=== PATIENT | female | born 1990 | race African-American/Black ===

== ENCOUNTER 2018-10-23 22:03 | Emergency (ER) | payer SELFPAY ==
[2018-10-23] MEDS ORDERED: methylPREDNISolone Sod Succ/PF 125 MG/2 ML VIAL ONE (22:54)
[2018-10-23] MEDS ORDERED: Famotidine 20 MG TAB ONE (22:54)
[2018-10-23] MEDS ORDERED: Water For Inject, Bacteriostat 30 ML ONE (22:54)
== END 2018-10-24 00:15 | disposition home or self-care (01) ==
LOC: ERS 22:03
DX: L50.9 Urticaria, unspecified (principal); D64.9 Anemia, unspecified; F31.9 Bipolar disorder, unspecified; F17.210 Nicotine dependence, cigarettes, uncomplicated
CPT/HCPCS: 96372; J2930

== ENCOUNTER 2019-02-16 17:28 | Emergency (ER) | payer SELFPAY | END 2019-02-16 21:07 | disposition home or self-care (01) | LOC: ERS 17:28 | DX: R42 Dizziness and giddiness (principal); D64.9 Anemia, unspecified; F31.9 Bipolar disorder, unspecified; F17.210 Nicotine dependence, cigarettes, uncomplicated | CPT/HCPCS: 93005 ==

== ENCOUNTER 2019-05-29 13:48 | Emergency (ER) | payer BC, SELFPAY ==
[2019-05-29 14:48] LABS: #Basophils 0.1 thou/uL (0.0-0.2); #Eosinphils 0.1 thou/uL (0.0-0.7); #Lymphocytes 1.8 thou/uL (1.20-3.40); #Monocytes 0.3 thou/uL (0.11-0.59); #Neutrophils 3.4 thou/uL (1.40-6.50); %Basophils 1.1 % (0.0-1.0); %Lymphocytes 32.8 % (21.0-51.0); %Monocytes 5.2 % (0.0-10.0); Hemoglobin 5.7 g/dL (12.0-16.0); Mean Corpuscular HGB CONC 27.8 g/dL (32.0-36.0); Mean Corpuscular Hemoglobin 19.8 pg (27.0-31.0); Mean Corpuscular Volume 71.2 fL (78.0-98.0); Mean Platelet Volume 9.2 fL (7.4-10.4); Platelet Count 261 thou/uL (130-400); RBC Distribution Width 22.2 % (11.5-14.5); Red Blood Cell (RBC) Count 2.86 mill/uL (4.20-5.40); White Blood Cell (WBC) Count 5.6 thou/uL (4.8-10.8)
[2019-05-29 14:59] LABS: ALT (SGPT) Less than 7 U/L (8-55); AST (SGOT) 12 U/L (5-34); Alkaline Phosphatase 41 U/L (40-150); Anion Gap 12 mmol/L (10-20); BUN (Urea Nitrogen) 10 mg/dL (7.0-18.7); Bilirubin, Total 0.3 mg/dL (0.2-1.2); Calc. Creatinine Clearance 0 mL/min (70-130); Calcium 9.1 mg/dL (7.8-10.44); Carbon Dioxide 22 mmol/L (22-29); Chloride 111 mmol/L (98-107); Estimated GFR-MDRD Greater than 90; Globulin 2.5 g/dL (2.4-3.5); Glucose 93 mg/dL (70-105); Protein, Total 6.5 g/dL (6.0-8.3); Sodium 141 mmol/L (136-145)
[2019-05-29 15:14] LABS: Anisocytosis SLIGHT = 6-15 cells (100X) (0-5/hpf); Elliptocytes SLIGHT = 2-5 cells (100X) (0-1/hpf); Hypochromia MODERATE=16-30 cells (100X) (0-5/hpf); MDiff Complete? YES; Microcytosis SLIGHT = 6-15 cells (100X) (0-5/hpf); Ovalocytes SLIGHT = 2-5 cells (100X) (0-1/hpf); Platelet Morphology Comment Appears Adequate; Polychromasia SLIGHT = 2-3 cells (100X) (0-2/hpf); Reflex for Review?? YES; Target Cells SLIGHT = 2-5 cells (100X) (0-1/hpf); Tear Drops SLIGHT = 2-5 cells (100X) (0-1/hpf)
[2019-05-29 15:41] LABS: BHCG - Serum Negative (NEGATIVE); Pregs Control Background? CLEAR/WHITE (CLR/WHITE); Pregs Control Bar Appear? YES (CONTROL BAR)
[2019-05-29 16:41] LABS: PTT 28.2 SEC (22.9-36.1); Prothrombin Time 13.5 SEC (12.0-14.7)
--- NOTE | 2019-05-29 17:01 | CON ---
DATE OF CONSULTATION: 05/29/2019 REQUESTING PHYSICIAN: Dr. Yeung in the ER. LOCATION: ER, bed 6. REASON FOR CONSULTATION: Compensated chronic anemia due to heavy menstrual bleeding. HISTORY OF PRESENT ILLNESS: This is a 28-year-old, G0, who has had a chronic/long-term history of heavy menstrual bleeding, not yet evaluated. She was initially seen at the [facility], and was sent here for gynecological evaluation/workup. She denies shortness of breath or chest pain. She denies dizziness or loss of consciousness, fatigue. She states heavy menstrual bleeding, but has not sought evaluation as of yet. She is not on any medication. REVIEW OF SYSTEMS: Negative for shortness of breath, dyspnea, chest pain, or syncope. Complete review of systems was done and is otherwise negative as per HPI. PAST MEDICAL HISTORY: Negative. PAST SURGICAL HISTORY: Significant only for appendectomy. SOCIAL HISTORY: Positive for tobacco. PHYSICAL EXAMINATION: VITAL SIGNS: Showed non-tachycardia with a pulse of 89 and blood pressure is normal. GENERAL: Clinically, she is in no acute distress and appears well compensated. There is no evidence of active vaginal bleeding at this time. LABORATORY DATA: Hemoglobin is 5.7 and hematocrit value is 20. Interventions ordered. I have ordered a PT/PTT/von Willebrand factor assays, ultrasound. ASSESSMENT: This is a 28-year-old, G0, with a long/chronic history of heavy menstrual bleeding, not yet evaluated. She is compensated with no evidence of symptomatology. I have discussed the case with the ER physician. I went down to the bedside, where the patient was taken down for ultrasound evaluation. This history is done in union/partnership with the ER physician. PLAN: 1. I have discussed giving the patient 1 to 2 units prophylactically. Even though she is hemodynamically stable, as she is a smoker, hemoglobin of 5.7, does not allow for any reserve if heavy menstrual bleeding continues. ER physician will order packed red blood cells. 2. To follow up on the PT/PTT, ultrasound, and possible endometrial biopsy (which needs to be performed). I have recommended that the patient seek followup at [facility], [facility], [facility] [place], or any other gynecological office. 3. No need for estrogen therapy at this time as she is not actively bleeding currently. 4. After her packed red blood cell transfusion, we can follow this up as an outpatient as she is hemodynamically stable without evidence of acute bleed at this time. Job ID: [id number]
--- NOTE | 2019-05-29 17:01 | ULT ---
Pelvic ultrasound: 05/29/2019 COMPARISON: None HISTORY: Heavy menstrual bleeding TECHNIQUE: Multiplanar grayscale sonographic imaging of the pelvis obtained with transabdominal and e ndovaginal imaging. The ovaries are assessed with color flow and spectral analysis FINDINGS: The uterus measures 5.7 x 3.9 x 3.5 cm. No uterine mass identified. The endometrial thickne ss is approximately 7 mm. There is heterogeneity of the endometrial contents, which may signify complex fluid within the endometrial canal. The right ovary measures 4.4 x 2.4 x 4.3 cm and the left ovary measures 4.2 x 2.9 x 3.8 cm. Ovaries d emonstrate normal blood flow. There are numerous peripheral follicles associated with both ovaries. This appearance can be seen on the basis of polycystic ovarian syndrome. Clinical correlation is requ ired. There is small volume free fluid in the pelvic cul-de-sac. IMPRESSION: Appearance of the ovaries suggest possible PCOS. Probable small volume complex fluid with in the endometrial canal. Ovaries demonstrate normal blood flow.
== END 2019-05-29 20:48 | disposition home or self-care (01) ==
LOC: ERS 13:48
DX: N92.0 Excessive and frequent menstruation with regular cycle (principal); D64.9 Anemia, unspecified; F17.210 Nicotine dependence, cigarettes, uncomplicated
CPT/HCPCS: 36415; 36430; 76856; 80053; 84703; 85025; 85060; 85245; 85246; 85610; 85730; 86850; 86900; 86901; P9016

== ENCOUNTER 2019-10-03 17:45 | Observation (INO) | payer BC, SELFPAY ==
[2019-10-03 18:20] LABS: Hemoglobin 5.5 g/dL (12.0-16.0); Mean Corpuscular HGB CONC 28.9 g/dL (32.0-36.0); Mean Corpuscular Hemoglobin 18.8 pg (27.0-31.0); Mean Corpuscular Volume 65.2 fL (78.0-98.0); Mean Platelet Volume 6.7 fL (7.4-10.4); Platelet Count 359 thou/uL (130-400); RBC Distribution Width 33.4 % (11.5-14.5); Red Blood Cell (RBC) Count 2.93 mill/uL (4.20-5.40); White Blood Cell (WBC) Count 6.8 thou/uL (4.8-10.8)
[2019-10-03 18:21] LABS: #Basophils 0.1 thou/uL (0.0-0.2); #Lymphocytes 1.6 thou/uL (1.20-3.40); #Monocytes 0.6 thou/uL (0.11-0.59); #Neutrophils 4.6 thou/uL (1.40-6.50); %Basophils 0.9 % (0.0-1.0); %Eosinophils 0.3 % (0.0-10.0); %Lymphocytes 23.9 % (21.0-51.0); %Monocytes 8.5 % (0.0-10.0); %Neutrophils 66.5 % (42.0-75.0)
[2019-10-03 18:36] LABS: ALT (SGPT) Less than 7 U/L (8-55); AST (SGOT) 16 U/L (5-34); Albumin 4.5 g/dL (3.5-5.0); Alkaline Phosphatase 50 U/L (40-110); Anion Gap 14 mmol/L (10-20); BUN (Urea Nitrogen) 6 mg/dL (7.0-18.7); Bilirubin, Total 0.6 mg/dL (0.2-1.2); Calc. Creatinine Clearance 0 mL/min (70-130); Calcium 9.6 mg/dL (7.8-10.44); Carbon Dioxide 23 mmol/L (22-29); Chloride 106 mmol/L (98-107); Estimated GFR-MDRD Greater than 90; Globulin 3.2 g/dL (2.4-3.5); Glucose 121 mg/dL (70-105); Potassium 3.1 mmol/L (3.5-5.1); Protein, Total 7.7 g/dL (6.0-8.3); Sodium 140 mmol/L (136-145)
[2019-10-03 18:46] LABS: Anisocytosis MODERATE=16-30 cells (100X) (0-5/hpf); Hypochromia MODERATE=16-30 cells (100X) (0-5/hpf); MDiff Complete? YES; Microcytosis MODERATE=15-30 cells (100X) (0-5/hpf); Ovalocytes SLIGHT = 2-5 cells (100X) (0-1/hpf); Platelet Morphology Comment Appears Adequate; Polychromasia MODERATE = 3-4 cells (100X) (0-2/hpf); Reflex for Review?? NO; Schistocytes SLIGHT = 2-5 cells (100X) (0-1/hpf); Target Cells SLIGHT = 2-5 cells (100X) (0-1/hpf); Tear Drops SLIGHT = 2-5 cells (100X) (0-1/hpf)
[2019-10-03 19:41] LABS: Clarity Turbid (Clear); Leukocyte Unable to Interpret (Negative)
[2019-10-03 19:42] LABS: BHCG - Serum Negative (NEGATIVE); Pregs Control Background? CLEAR/WHITE (CLR/WHITE); Pregs Control Bar Appear? YES (CONTROL BAR)
[2019-10-03 19:42] LABS: Bilirubin Unable to Interpret (Negative); Blood, Urine Unable to Interpret (Negative); Glucose, Urine (Dipstick) Unable to Interpret mg/dL (Negative); Nitrite Unable to Interpret (Negative); Protein, Urine (Dipstick) Unable to Interpret mg/dL (Neg-Trace); Urobilinogen UNABLE TO INTERPRET mg/dL (Less than 2)
[2019-10-03 19:43] LABS: Bacteria/HPF 4+ HPF (None Seen); RBC/HPF Greater than 50 HPF (0-3); WBC/HPF Greater Than 50 HPF (0-3)
--- NOTE | 2019-10-04 03:16 | HP ---
HISTORY OF PRESENT ILLNESS: The patient is a 29-year-old G0 female with a longstanding history of irregular heavy periods and presenting with 1 week of heavy vaginal bleeding, which has since dissipated, and presents with lightheadedness, dizziness, weakness. In the ER, she was noted to have a hemoglobin of 5.5, hematocrit of 19.1, platelets of 359,000. The patient received a unit of packed red blood cells down in the emergency room and was admitted to continue with that. The patient reports that her bleeding is now much reduced. She confirms that her periods are irregular. Sometimes she bleeds for a whole month and stops bleeding for a couple of months. She has used control pills in the past that have worked. She just has not had any opportunity to follow up to continue control that had been prescribed in the emergency room. She reports that she has had blood transfusions on multiple occasions. She also reports that she is now working at [employer] and is getting health insurance starting October 24. The patient denies any history of getting a Pap smear. She has never been . She has had 2 sexual partners in her life. The patient reports nausea and vomiting. Denies abdominal pain. Denies constipation or diarrhea. PAST MEDICAL HISTORY: Anemia. PAST SURGICAL HISTORY: Appendectomy. SOCIAL HISTORY: The patient reports marijuana use daily. She smokes about a half pack per day and drinks about once a month. ALLERGIES: SHE HAS NO KNOWN DRUG ALLERGIES. MEDICATIONS: She is not on any medications. REVIEW OF SYSTEMS: Per HPI. PHYSICAL EXAMINATION: VITAL SIGNS: Blood pressure 102/58, pulse of 90, respiratory rate of 16, saturating 99% on room air, temperature 99.0. GENERAL: She appears to be in no acute distress. She is alert, oriented, cooperative, and pleasant to interact with. HEAD: Normocephalic and atraumatic. ASSESSMENT AND PLAN: The patient is a 29-year-old with long-standing irregular bleeding and multiple blood transfusions. She still desires fertility, has had success with control pills in the past. Plan at this time is for her to continue with her 2nd unit of blood and will be here overnight given the lateness of the hour. In the morning, she will be discharged home on Sprintec with a 3-month supply. She has been given instructions to follow up with [facility] [place] in the next month for followup on her control and her bleeding. Job ID: [id number]
--- NOTE | 2019-10-04 06:28 | DIS ---
DATE OF ADMISSION: 10/03/2019 DATE OF DISCHARGE: 10/04/2019 ADMITTING DIAGNOSES: 1. Chronic blood loss anemia. 2. Abnormal uterine bleeding. DISCHARGE DIAGNOSES: 1. Chronic blood loss anemia. 2. Abnormal uterine bleeding. PROCEDURE: Blood transfusion. CONSULTATIONS: None. HOSPITAL COURSE: The patient is a 29-year-old female with longstanding abnormal uterine bleeding and multiple blood transfusion, presents for symptomatic anemia. The patient has received 2 units of packed red blood cells since presentation. Her initial hemoglobin and hematocrit were 5.5 and 19.1. The patient reports after the 2 units of packed red blood cells that she is feeling significantly better. She denies any dizziness, lightheadedness, or weakness, when she is up to go to the bathroom, move the bowel. PHYSICAL EXAMINATION: VITAL SIGNS: Most recent vital signs this morning; blood pressure is 102/58, pulse of 80, temperature 99.3, saturating 100% on room air, and respiratory rate of 16. GENERAL: She appears to be in no acute distress. She is alert and oriented, cooperative and pleasant to interact with. HEENT: Head is normocephalic, atraumatic. The patient is being discharged to home with instructions to follow up within the next month for her abnormal uterine bleeding and control pills. She is being discharged on Sprintec to be taken once a day as needed for menstrual irregularities and chronic anemia. She also will be counseled to be taking iron and vitamin C daily for the next 6 months. The patient is acquiring insurance through her work beginning October 24, which hopefully will allow her to follow up in a timely manner. Job ID: [id number]
[2019-10-04 08:37] VITALS: BP 105/55; TEMP 98.8
[2019-10-04] MEDS ORDERED: FLU VACC QS2019-20(6MOS UP)/PF 60 MCG/0.5 ML SYRINGE IM ONE (09:00)
== END 2019-10-04 09:05 | disposition home or self-care (01) ==
LOC: ERS 17:45 → 3SE 20:22
PROVIDERS: ADMIT Obstetrics & Gynecology; ATTEND Obstetrics & Gynecology
DX: D50.0 Iron deficiency anemia secondary to blood loss (chronic) (principal); N93.9 Abnormal uterine and vaginal bleeding, unspecified; F17.210 Nicotine dependence, cigarettes, uncomplicated
CPT/HCPCS: 36415; 36430; 80053; 81003; 81015; 84703; 85025; 86850; 86900; 86901; 93005; G0378; P9016

== ENCOUNTER 2020-07-31 16:11 | Emergency (ER) | payer SELFPAY | END 2020-07-31 18:15 | disposition home or self-care (01) | LOC: ERS 16:11 | DX: R21 Rash and other nonspecific skin eruption (principal); D64.9 Anemia, unspecified; F17.210 Nicotine dependence, cigarettes, uncomplicated | CPT/HCPCS: 99282 ==

== ENCOUNTER 2020-09-12 16:00 | Emergency (ER) | payer SELFPAY ==
[2020-09-12 16:36] LABS: Hemoglobin 7.4 g/dL (12.0-16.0); Mean Corpuscular HGB CONC 29.7 g/dL (32.0-36.0); Mean Corpuscular Hemoglobin 21.5 pg (27.0-31.0); Mean Corpuscular Volume 72.2 fL (78.0-98.0); Mean Platelet Volume 10.9 fL (7.4-10.4); Platelet Count 323 thou/uL (130-400); RBC Distribution Width 20.5 % (11.5-14.5); Red Blood Cell (RBC) Count 3.43 mill/uL (4.20-5.40); White Blood Cell (WBC) Count 8.6 thou/uL (4.8-10.8)
[2020-09-12 16:37] LABS: #Basophils 0.1 thou/uL (0.0-0.2); #Lymphocytes 1.8 thou/uL (1.20-3.40); #Monocytes 0.6 thou/uL (0.11-0.59); %Basophils 1.2 % (0.0-1.0); %Eosinophils 0.5 % (0.0-10.0); %Lymphocytes 21.3 % (21.0-51.0); %Monocytes 7.2 % (0.0-10.0); %Neutrophils 69.8 % (42.0-75.0)
[2020-09-12 16:53] LABS: Anisocytosis SLIGHT = 6-15 cells (100X) (0-5/hpf); Hypochromia SLIGHT = 6-15 cells (100X) (0-5/hpf); MDiff Complete? YES; Microcytosis SLIGHT = 6-15 cells (100X) (0-5/hpf); Platelet Morphology Comment Appears Adequate; Polychromasia MODERATE = 3-4 cells (100X) (0-2/hpf); Schistocytes SLIGHT = 2-5 cells (100X) (0-1/hpf); Target Cells SLIGHT = 2-5 cells (100X) (0-1/hpf); Tear Drops SLIGHT = 2-5 cells (100X) (0-1/hpf)
[2020-09-12 16:55] LABS: ALT (SGPT) 8 U/L (8-55); AST (SGOT) 16 U/L (5-34); Albumin 4.6 g/dL (3.5-5.0); Alkaline Phosphatase 57 U/L (40-110); Anion Gap 16 mmol/L (10-20); BUN (Urea Nitrogen) 8 mg/dL (7.0-18.7); Bilirubin, Total 0.4 mg/dL (0.2-1.2); Calc. Creatinine Clearance 0 mL/min (70-130); Calcium 9.8 mg/dL (7.8-10.44); Carbon Dioxide 22 mmol/L (22-29); Chloride 104 mmol/L (98-107); Estimated GFR-MDRD Greater than 90; Globulin 3.7 g/dL (2.4-3.5); Glucose 93 mg/dL (70-105); Potassium 3.3 mmol/L (3.5-5.1); Protein, Total 8.3 g/dL (6.0-8.3); Sodium 139 mmol/L (136-145)
--- NOTE | 2020-09-13 17:16 | EKG ---
Test Reason : Blood Pressure : / mmHG Vent. Rate : 074 BPM Atrial Rate : 074 BPM P-R Int : 158 ms QRS Dur : 094 ms QT Int : 380 ms P-R-T Axes : 054 -02 021 degrees QTc Int : 421 ms Sinus rhythm with marked sinus arrhythmia Incomplete right bundle branch block Borderline ECG Confirmed by HILARIO KUMAR DO ([id number]), script editor ALLYSON DEE ([id number]) on 09/13/2020 5:15:48 PM Referred By: Confirmed By:HILARIO KUMAR DO
== END 2020-09-12 19:42 | disposition home or self-care (01) ==
LOC: ERS 16:00
DX: N92.1 Excessive and frequent menstruation with irregular cycle (principal); D64.9 Anemia, unspecified; F17.210 Nicotine dependence, cigarettes, uncomplicated
CPT/HCPCS: 36415; 80053; 85025; 93005

== ENCOUNTER 2021-03-31 04:45 | Observation (INO) | payer SELFPAY ==
[2021-03-31 05:45] LABS: Bilirubin Negative (Negative); Blood, Urine Large (Negative); Glucose, Urine (Dipstick) Negative (Negative); Ketone, Urine Trace mg/dL (Negative); Leukocyte Negative (Negative); Nitrite Negative (Negative); Protein, Urine (Dipstick) 100 mg/dL (Neg-Trace)
[2021-03-31 05:49] LABS: Clarity Hazy (Clear)
[2021-03-31 05:50] LABS: Specific Gravity, Urine 1.025 (1.002-1.036)
[2021-03-31 05:51] LABS: Pregnancy Test - Urine (BHCG) Negative (Negative); Pregu Control Background? CLEAR/WHITE (CLR/WHITE); Pregu Control Bar Appear? YES (CONTROL BAR); Specific Gravity 1.025 (1.002-1.036)
[2021-03-31 05:52] LABS: Other Microscopic Description Less than 2 mL rec'd
[2021-03-31 06:00] LABS: Bacteria/HPF 2+ HPF (None Seen); RBC/HPF Greater than 50 HPF (0-3); WBC/HPF 21-50 HPF (0-3)
[2021-03-31 06:31] LABS: ALT (SGPT) 9 U/L (8-55); AST (SGOT) 19 U/L (5-34); Albumin 4.8 g/dL (3.5-5.0); Alkaline Phosphatase 47 U/L (40-110); Anion Gap 15 mmol/L (10-20); BUN (Urea Nitrogen) 8 mg/dL (7.0-18.7); Bilirubin, Total 0.8 mg/dL (0.2-1.2); Calc. Creatinine Clearance 0 mL/min (70-130); Calcium 9.7 mg/dL (7.8-10.44); Carbon Dioxide 24 mmol/L (22-29); Chloride 104 mmol/L (98-107); Globulin 3.5 g/dL (2.4-3.5); Glucose 122 mg/dL (70-105); Potassium 3.3 mmol/L (3.5-5.1); Protein, Total 8.3 g/dL (6.0-8.3); Sodium 140 mmol/L (136-145)
[2021-03-31] MEDS ORDERED: Promethazine HCl 25 MG/ML VIAL ONE (06:36)
[2021-03-31 06:49] LABS: Anisocytosis MARKED = >30 cells (100X) (0-5/hpf); Band 10 % (5-11); Elliptocytes SLIGHT = 2-5 cells (100X) (0-1/hpf); Hemoglobin 5.2 g/dL (12.0-16.0); Hypochromia MODERATE=16-30 cells (100X) (0-5/hpf); Lymphocytes 23 % (21-51); MDiff Complete? YES; Mean Corpuscular Hemoglobin 18.7 pg (27.0-31.0); Mean Corpuscular Volume 64.3 fL (78.0-98.0); Mean Platelet Volume 6.4 fL (7.4-10.4); Microcytosis SLIGHT = 6-15 cells (100X) (0-5/hpf); Monocytes 7 % (0-10); Neutrophil 60 % (42-75); Platelet Count 555 thou/uL (130-400); Platelet Morphology Comment Appears Increased; RBC Distribution Width 36.2 % (11.5-14.5); Reflex for Review?? YES; White Blood Cell (WBC) Count 6.8 thou/uL (4.8-10.8)
[2021-03-31] MEDS ORDERED: Potassium Chloride 20 MEQ TAB ONE (08:18)
[2021-03-31] MEDS ORDERED: Acetaminophen 650 MG Suppository PR PRN (08:29)
[2021-03-31] MEDS ORDERED: Acetaminophen 325 MG TAB PO PRN (08:29)
[2021-03-31] MEDS ORDERED: Ondansetron ODT 4 MG TAB PO PRN (08:29)
[2021-03-31] MEDS ORDERED: Ondansetron PF 4 MG/2 ML Vial IVP PRN (08:29)
[2021-03-31 09:30] VITALS: BMI 30.6
[2021-03-31 09:52] LABS: Iron 18 ug/dL (50-170); Iron Binding Capacity, Total 565 mcg/dL (265-497); Reticulocyte Count 4.4 % (0.5-1.5)
[2021-03-31 11:59] LABS: Thyroid Stimulating Hormone 1.9814 uIU/mL (0.35-4.94)
[2021-03-31 12:15] LABS: Hemoglobin A1c 4.2 % (4.0-6.0)
[2021-03-31 14:37] LABS: INR-International Normal Ratio 1.1; PTT 26.5 sec (22.9-36.1); Prothrombin Time 14.1 sec (12.0-14.7)
[2021-03-31 14:49] LABS: SARS-CoV-2 PCR by NAA Not Detected (NotDetected)
[2021-03-31 14:49] LABS: Hemoglobin 7.6 g/dL (12.0-16.0)
[2021-03-31 15:10] LABS: Ferritin 2.04 ng/mL (10-291)
[2021-03-31] MEDS ORDERED: Ferrous Sulfate 325 MG TAB PO SCH (17:00)
[2021-04-01] MEDS ORDERED: Iron, Sodium Ferric Gluconate 125 MG in Sodium Chloride 0.9% 100 ML IVPB SCH (08:00)
[2021-04-01 08:04] LABS: #Basophils 0.1 thou/uL (0.0-0.2); #Lymphocytes 2.2 thou/uL (1.20-3.40); #Monocytes 0.4 thou/uL (0.11-0.59); #Neutrophils 5.2 thou/uL (1.40-6.50); %Basophils 1.1 % (0.0-1.0); %Eosinophils 0.6 % (0.0-10.0); %Lymphocytes 27.5 % (21.0-51.0); %Monocytes 5.1 % (0.0-10.0); %Neutrophils 65.7 % (42.0-75.0); Anisocytosis MARKED = >30 cells (100X) (0-5/hpf); Band 2 % (5-11); Eosinophils 4 % (0-10); Hypochromia MODERATE=16-30 cells (100X) (0-5/hpf); Lymphocytes 26 % (21-51); MDiff Complete? YES; Mean Corpuscular HGB CONC 30.7 g/dL (32.0-36.0); Mean Corpuscular Hemoglobin 22.5 pg (27.0-31.0); Mean Corpuscular Volume 73.1 fL (78.0-98.0); Mean Platelet Volume 5.9 fL (7.4-10.4); Microcytosis SLIGHT = 6-15 cells (100X) (0-5/hpf); Monocytes 3 % (0-10); Neutrophil 65 % (42-75); Nucleated RBC 2 % (0); Ovalocytes MODERATE= 6-15 cells (100X) (0-1/hpf); Platelet Count 639 thou/uL (130-400); Platelet Morphology Comment Appears Increased; Polychromasia MODERATE = 3-4 cells (100X) (0-2/hpf); RBC Distribution Width 32.9 % (11.5-14.5); Red Blood Cell (RBC) Count 3.11 mill/uL (4.20-5.40); Tear Drops SLIGHT = 2-5 cells (100X) (0-1/hpf)
[2021-04-01] MEDS ORDERED: Ascorbic Acid 500 mg Chewable Tablet PO SCH (09:00)
[2021-04-01] MEDS ORDERED: Prenatal Vitamin 1 TAB PO SCH ×2 (09:00→10:30)
[2021-04-01] MEDS ORDERED: Ferrous Sulfate 325 MG TAB PO SCH (09:00)
[2021-04-01 11:30] VITALS: BP 117/56; TEMP 98.2
[2021-04-01 12:47] LABS: Hemoglobin 7.6 g/dL (12.0-16.0); Mean Corpuscular HGB CONC 31.1 g/dL (32.0-36.0); Mean Corpuscular Hemoglobin 22.4 pg (27.0-31.0); Mean Corpuscular Volume 72.3 fL (78.0-98.0); Mean Platelet Volume 5.9 fL (7.4-10.4); Platelet Count 714 thou/uL (130-400); RBC Distribution Width 32.7 % (11.5-14.5); Red Blood Cell (RBC) Count 3.38 mill/uL (4.20-5.40); White Blood Cell (WBC) Count 10.2 thou/uL (4.8-10.8)
[2021-04-02] MEDS ORDERED: Prenatal Vitamin 1 TAB PO SCH (09:00)
== END 2021-04-01 16:56 | disposition home or self-care (01) ==
LOC: ERS 04:45 → ONC 08:02
PROVIDERS: ADMIT Family Medicine; ATTEND Family Medicine
DX: E28.2 Polycystic ovarian syndrome (principal); N93.9 Abnormal uterine and vaginal bleeding, unspecified; D50.0 Iron deficiency anemia secondary to blood loss (chronic); E87.6 Hypokalemia; Z87.891 Personal history of nicotine dependence; Z20.822 Contact with and (suspected) exposure to COVID-19
CPT/HCPCS: 36415; 36430; 80053; 81003; 81015; 81025; 82728; 83036; 83540; 83550; 83735; 84443; 85025; 85046; 85060; 85610; 85730; 86850; 86900; 86901; 94760; 96365; 96367; G0378; J2550; J2916; J3490; P9016; U0003; U0005

== ENCOUNTER 2022-09-06 17:41 | Emergency (ER) | payer SELFPAY ==
[2022-09-06 19:43] LABS: SARS-CoV-2 NAA Rapid Test DETECTED (NotDetected)
== END 2022-09-06 20:17 | disposition home or self-care (01) ==
LOC: ERS 17:41
DX: U07.1 COVID-19 (principal); F17.210 Nicotine dependence, cigarettes, uncomplicated
CPT/HCPCS: 71046; 93005